=== PATIENT | female | born 1970 | race Caucasian/White ===

== ENCOUNTER 2016-10-21 10:53 | Emergency (ER) | payer MEDICAID ==
[~2016-10-21] VITALS: Ht 170.2 cm; Wt 55.0 kg
[~2016-10-21 10:53] MED LIST: ALBU6.7H INH; BECL8.7A5 INH; CYCL-259 PO; HYDR5POW; IBUP200T48 PO; SERT25TA PO; TRAM-28 PO; TRAM150C25; TRAZ100T15 PO
[2016-10-21 15:57] LABS: HEMOGLOBIN 12.9 g/dL (11.7-16.4)
[2016-10-21 16:07] VITALS: BP 114/76
[2016-10-21 16:11] LABS: BLOOD UREA NITROGEN 9 mg/dL (7-18)
[2016-10-21 16:14] LABS: ASPARTATE AMINO TRANSFERASE 17 U/L (15-37)
[2016-10-21 16:17] LABS: ACETAMINOPHEN < 2 mcg/mL (10-30)
== END 2016-10-21 17:37 | disposition home or self-care (01) ==
LOC: ED 14:03
DX: F19.94 Other psychoactive substance use, unspecified with psychoactive substance-induced mood disorder (principal); F17.200 Nicotine dependence, unspecified, uncomplicated; F10.229 Alcohol dependence with intoxication, unspecified; F15.129 Other stimulant abuse with intoxication, unspecified; J45.909 Unspecified asthma, uncomplicated; L01.01 Non-bullous impetigo
CPT/HCPCS: 36415; 80053; 80307; 80329; 82140; 85025; 99284; G0480

== ENCOUNTER 2016-11-21 02:25 | Emergency (ER) | payer MEDICAID ==
[~2016-11-21] VITALS: Ht 167.6 cm; Wt 48.0 kg
[2016-11-21] MEDS ORDERED: ZIPRASIDONE 20 MG INJ IM ONE ×2 (02:53→03:00)
[2016-11-21 08:06] VITALS: BP 128/91
== END 2016-11-21 08:08 | disposition home or self-care (01) ==
LOC: ED 03:57
DX: F41.8 Other specified anxiety disorders (principal); F23 Brief psychotic disorder
CPT/HCPCS: 96372; 99284; J3486

== ENCOUNTER 2016-11-23 10:51 | Emergency (ER) | payer MEDICAID ==
[~2016-11-23] VITALS: Ht 170.2 cm; Wt 55.7 kg
[2016-11-23 10:52] VITALS: BP 125/77
== END 2016-11-23 13:27 | disposition home or self-care (01) ==
LOC: ED 11:39
DX: R20.2 Paresthesia of skin (principal); M54.12 Radiculopathy, cervical region; R20.9 Unspecified disturbances of skin sensation; J45.909 Unspecified asthma, uncomplicated
CPT/HCPCS: 70450; 71020; 72125; 93005; 99284

== ENCOUNTER 2017-02-05 19:35 | Emergency (ER) | payer MEDICAID ==
[~2017-02-05] VITALS: Ht 172.7 cm; Wt 50.0 kg
[2017-02-05] MEDS ORDERED: ONDANSETRON 2MG/ML, 2ML ONE (19:59)
[2017-02-05] MEDS ORDERED: MORPHINE SULFATE 4 MG/ML, 1ML ONE ×2 (19:59→21:23)
[2017-02-05] MEDS ORDERED: SODIUM CHLORIDE 0.9% 1,000ML IVBOLUS ONE ×2 (20:00→21:30)
[2017-02-05] MEDS ORDERED: ONDANSETRON 2MG/ML, 2ML IVPush ONE (20:00)
[2017-02-05] MEDS: MORPHINE SULFATE 4 MG/ML, 1ML IVPush PRN ×2 (20:06→21:25)
[2017-02-05 20:23] LABS: BLOOD UREA NITROGEN 20 mg/dL (7-18)
[2017-02-05 20:32] LABS: ASPARTATE AMINO TRANSFERASE 20 U/L (15-37)
[2017-02-05 22:11] VITALS: BP 104/62
[2017-02-05 22:12] LABS: DAU SCREEN DISCLAIMER
[2017-02-05 22:23] LABS: HCG UR OBC PASS
[2017-02-05] MEDS ORDERED: OMNIPAQUE 350 MG/ML, 100ML BOTTLE ONE (22:33)
== END 2017-02-05 23:04 ==
LOC: ED 21:55
DX: R10.32 Left lower quadrant pain (principal); J45.909 Unspecified asthma, uncomplicated
CPT/HCPCS: 36415; 74177; 76830; 80053; 80307; 81003; 81025; 85025; 87210; 87491; 87591; 87808; 96361; 96374; 96375; 96376; 99285; J2405; J7030; Q9967

== ENCOUNTER 2017-03-14 16:09 | Emergency (ER) | payer MEDICAID ==
[~2017-03-14] VITALS: Ht 172.7 cm; Wt 60.0 kg
[~2017-03-14 16:09] MED LIST changes: -BECL8.7A5 INH; +BECL8.7A7 INH; -TRAM-28 PO; +TRAM-47 PO
[2017-03-14] MEDS ORDERED: PHENAZOPYRIDINE 200 MG TABLET PO ONE (16:30)
[2017-03-14] MEDS ORDERED: PHENAZOPYRIDINE 200 MG TABLET ONE (16:41)
[2017-03-14] MEDS ORDERED: PARO10TA56 PO (16:55)
[2017-03-14] MEDS ORDERED: TRAZ100T15 PO (16:55)
[2017-03-14 17:55] VITALS: BP 95/50
== END 2017-03-14 17:53 | disposition home or self-care (01) ==
LOC: ED 17:47
DX: N30.00 Acute cystitis without hematuria (principal); F15.10 Other stimulant abuse, uncomplicated; F19.94 Other psychoactive substance use, unspecified with psychoactive substance-induced mood disorder; F41.9 Anxiety disorder, unspecified; M54.12 Radiculopathy, cervical region
CPT/HCPCS: 81003; 99283

== ENCOUNTER 2017-06-26 15:33 | Emergency (ER) | payer MEDICAID ==
[~2017-06-26] VITALS: Ht 172.7 cm; Wt 54.7 kg
[~2017-06-26 15:33] MED LIST changes: +PARO10TA56 PO
[2017-06-26 15:42] VITALS: BP 142/92
[2017-06-26] MEDS ORDERED: HYDROcodone/APAP 5/325 TABLET ONE (16:26)
[2017-06-26] MEDS ORDERED: HYDROcodone/APAP 5/325 TABLET PO ONE (16:30)
== END 2017-06-26 16:58 | disposition home or self-care (01) ==
LOC: ED 16:52
DX: K08.89 Other specified disorders of teeth and supporting structures (principal); F10.20 Alcohol dependence, uncomplicated; F17.210 Nicotine dependence, cigarettes, uncomplicated; F32.9 Major depressive disorder, single episode, unspecified; F41.9 Anxiety disorder, unspecified; I10 Essential (primary) hypertension; J45.909 Unspecified asthma, uncomplicated; Z88.0 Allergy status to penicillin
CPT/HCPCS: 99283

== ENCOUNTER 2017-07-02 17:59 | Emergency (ER) | payer MEDICAID ==
[~2017-07-02] VITALS: Ht 170.2 cm; Wt 58.3 kg
[2017-07-02 18:54] VITALS: BP 100/67
== END 2017-07-02 19:48 | disposition home or self-care (01) ==
LOC: ED 19:16
DX: K02.9 Dental caries, unspecified (principal); H92.01 Otalgia, right ear; I10 Essential (primary) hypertension; J45.909 Unspecified asthma, uncomplicated
CPT/HCPCS: 99283

== ENCOUNTER 2017-08-12 06:51 | Emergency (ER) | payer MEDICAID ==
[~2017-08-12] VITALS: Ht 170.2 cm; Wt 55.5 kg
[~2017-08-12 06:51] MED LIST changes: -IBUP200T48 PO; +IBUP200T49 PO
[2017-08-12 06:53] VITALS: BP 117/68
[2017-08-12] MEDS ORDERED: KETOROLAC 30 MG/1 ML ONE (07:28)
[2017-08-12] MEDS ORDERED: KETOROLAC 30 MG/1 ML IM ONE (07:30)
[2017-08-12 07:49] LABS: BASOPHILS % (AUTO) 1 % (0-1); EOSINOPHILS # (AUTO) 0.31 x10^3/uL (0-0.4); EOSINOPHILS % (AUTO) 3 % (1-7); LYMPHOCYTES # (AUTO) 2.48 x10^3/uL (1-3.4); LYMPHOCYTES % (AUTO) 21 % (22-44); MD NO; MEAN CORPUSCULAR HEMOGLOBIN 31.3 pg (27.0-34.8); MEAN CORPUSCULAR HGB CONC 33.7 g/dL (32.4-35.8); MEAN CORPUSCULAR VOLUME 92.7 fL (80-100); MEAN PLATELET VOLUME 7.2 fL (7.4-10.4); MONOCYTES # (AUTO) 0.92 x10^3/uL (0.2-0.8); MONOCYTES % (AUTO) 8 % (2-9); NEUTROPHILS # (AUTO) 8.31 x10^3/uL (1.8-6.8); NEUTROPHILS % (AUTO) 69 % (42-75); PLATELET COUNT 384 x10^3/uL (130-400); RED CELL DISTRIBUTION WIDTH 14.5 % (9.6-15.2)
[2017-08-12 08:00] LABS: ANION GAP 8 mmol/L (5-15); CALCIUM 8.1 mg/dL (8.5-10.1); CHLORIDE 109 mmol/L (98-107); CREATININE 0.49 mg/dL (0.55-1.02)
== END 2017-08-12 09:18 | disposition home or self-care (01) ==
LOC: ED 09:00
DX: M79.642 Pain in left hand (principal); M79.641 Pain in right hand; M77.42 Metatarsalgia, left foot; M77.41 Metatarsalgia, right foot; F32.9 Major depressive disorder, single episode, unspecified; F41.9 Anxiety disorder, unspecified; I10 Essential (primary) hypertension; J45.909 Unspecified asthma, uncomplicated
CPT/HCPCS: 36415; 73130; 80048; 85025; 96372; 99285; J1885

== ENCOUNTER 2017-09-14 16:11 | Inpatient (IN) | payer MEDICAID ==
[~2017-09-14] VITALS: Ht 172.7 cm; Wt 58.7 kg
[2017-09-14] MEDS ORDERED: LORazepam 1MG TABLET PO ONE (17:00)
[2017-09-14] MEDS ORDERED: LORazepam 1MG TABLET ONE (17:20)
[2017-09-14 17:37] LABS: MEAN CORPUSCULAR HEMOGLOBIN 32.1 pg (27.0-34.8); MEAN CORPUSCULAR HGB CONC 33.9 g/dL (32.4-35.8); MEAN CORPUSCULAR VOLUME 94.6 fL (80-100); MEAN PLATELET VOLUME 7.4 fL (7.4-10.4); PLATELET COUNT 438 x10^3/uL (130-400); RED BLOOD COUNT 4.36 x10^6/uL (3.82-5.3); RED CELL DISTRIBUTION WIDTH 14.3 % (9.6-15.2)
[2017-09-14 17:37] LABS: RAPID INFLUENZA A Negative (Negative); RAPID INFLUENZA B Negative (Negative)
[2017-09-14 17:46] LABS: ALBUMIN 3.3 g/dL (3.4-5.0); ANION GAP 11 mmol/L (5-15); CALCIUM 8.7 mg/dL (8.5-10.1); CHLORIDE 106 mmol/L (98-107)
[2017-09-14 17:47] LABS: CREATININE 0.72 mg/dL (0.55-1.02)
[2017-09-14] MEDS ORDERED: SODIUM CHLORIDE FLUSH 10ML SYR IVF ONE (18:00)
[2017-09-14] MEDS ORDERED: SODIUM CHLORIDE 0.9% 1,000ML IVBOLUS ONE ×2 (18:00→18:30)
[2017-09-14] MEDS ORDERED: CEFTRIAXONE PMX 1GM/50ML 50 ML IVPB ONE (18:00)
[2017-09-14] MEDS ORDERED: AZITHROMYCIN 500 MG in SODIUM CHLORIDE 0.9% 250 ML IVPB ONE (18:00)
[2017-09-14 18:19] LABS: MD YES
[2017-09-14] MEDS ORDERED: CEFTRIAXONE PMX 1GM/50ML 50 ML ONE (18:19)
[2017-09-14 18:22] LABS: <PLATELET ESTIMATE> ADEQUATE; <RBC MORPHOLOGY> NORMAL; BAND#(MANUAL) 0.19 x10^3/uL; BANDS%(MANUAL) 1 % (0-7); BASOS#(MANUAL) 0.19 x10^3/uL (0-0.1); BASOS% (MANUAL) 1 % (0-1); EOS#(MANUAL) 0.57 x10^3/uL (0.0-0.4); EOS% (MANUAL) 3 % (1-7); LYMPH#(MANUAL) 1.71 x10^3/uL (1-3.4); LYMPHS% (MANUAL) 9 % (22-44); MONOS#(MANUAL) 0.38 x10^3/uL (0.3-2.7); MONOS% (MANUAL) 2 % (2-9); REACTIVE LYMPHS # (MANUAL) 0.38 x10^3/uL (0-0); REACTIVE LYMPHS % (MANUAL) 2 % (0-0); SEG#(MANUAL) 15.58 x10^3/uL (1.8-6.8); SEGS% (MANUAL) 82 % (42-75)
[2017-09-14 18:23] LABS: LARGE PLATELETS 1+
[2017-09-14] MEDS: SODIUM CHLORIDE 0.9% 1,000 ML IV SCH (18:58)
[2017-09-14] MEDS ORDERED: ONDANSETRON 2MG/ML, 2ML IVPush PRN (19:00)
[2017-09-14] MEDS ORDERED: BISACODYL 10 MG SUPP PR PRN (19:00)
[2017-09-14] MEDS ORDERED: CEFTRIAXONE PMX 1GM/50ML 50 ML IV SCH (19:00)
[2017-09-14] MEDS ORDERED: LORazepam 2 MG/ML, 1ML IVPush PRN (19:00)
[2017-09-14] MEDS: AZITHROMYCIN 500 MG in SODIUM CHLORIDE 0.9% 250 ML IV SCH (19:00)
[2017-09-14] MEDS ORDERED: POLYETHYLENE GLYCOL 17 GM PACKET PO PRN (19:00)
[2017-09-14] MEDS: ALBUTEROL/IPRATROPIUM 2.5MG/0.5MG, 3 ML NPPB SCH (19:55)
[2017-09-14] MEDS ORDERED: ALBUTEROL/IPRATROPIUM 2.5MG/0.5MG, 3 ML ONE (19:56)
[2017-09-14] MEDS ORDERED: NICOTINE 14MG/24 HR PATCH.TD24 ONE (20:04)
[2017-09-14] MEDS ORDERED: ONDANSETRON 2MG/ML, 2ML ONE (20:04)
[2017-09-14] MEDS ORDERED: HEPARIN 5,000 UNITS/ML, 1ML ONE (20:04)
[2017-09-14] MEDS: HEPARIN 5,000 UNITS/ML, 1ML SQ SCH (20:09)
[2017-09-14] MEDS: NICOTINE 14MG/24 HR PATCH.TD24 TD SCH (20:10)
[2017-09-14 21:34] VITALS: BP 115/69
[2017-09-14] MEDS: GUAIFENESIN/DM 200-20MG, 10ML UDC PO PRN (21:50)
[2017-09-14] MEDS: ACETAMINOPHEN 325 MG TABLET PO PRN (21:50)
[2017-09-15 01:13] VITALS: BP 112/69
[2017-09-15] MEDS: HEPARIN 5,000 UNITS/ML, 1ML SQ SCH ×3 (03:11→18:28)
[2017-09-15] MEDS: ACETAMINOPHEN 325 MG TABLET PO PRN ×2 (03:17→15:07)
[2017-09-15] MEDS: SODIUM CHLORIDE 0.9% 1,000 ML IV SCH ×2 (04:47→14:58)
[2017-09-15 06:08] LABS: BASOPHILS # (AUTO) 0.04 x10^3/uL (0-0.1); BASOPHILS % (AUTO) 0 % (0-1); EOSINOPHILS # (AUTO) 0.45 x10^3/uL (0-0.4); EOSINOPHILS % (AUTO) 4 % (1-7); LYMPHOCYTES # (AUTO) 2.03 x10^3/uL (1-3.4); LYMPHOCYTES % (AUTO) 16 % (22-44); MD NO; MEAN CORPUSCULAR HEMOGLOBIN 31.5 pg (27.0-34.8); MEAN CORPUSCULAR HGB CONC 33.2 g/dL (32.4-35.8); MEAN PLATELET VOLUME 7.7 fL (7.4-10.4); MONOCYTES # (AUTO) 0.87 x10^3/uL (0.2-0.8); MONOCYTES % (AUTO) 7 % (2-9); NEUTROPHILS # (AUTO) 9.31 x10^3/uL (1.8-6.8); NEUTROPHILS % (AUTO) 73 % (42-75); PLATELET COUNT 336 x10^3/uL (130-400); RED BLOOD COUNT 4.01 x10^6/uL (3.82-5.3); RED CELL DISTRIBUTION WIDTH 14.2 % (9.6-15.2)
[2017-09-15 06:15] LABS: CHLORIDE 112 mmol/L (98-107)
[2017-09-15 06:43] LABS: ALANINE AMINOTRANSFERASE 23 U/L (12-78); ALBUMIN 2.7 g/dL (3.4-5.0); ALKALINE PHOSPHATASE 62 U/L (45-117); ANION GAP 7 mmol/L (5-15); BILIRUBIN,TOTAL 0.5 mg/dL (0.2-1.0); CALCIUM 8.1 mg/dL (8.5-10.1); CREATININE 0.57 mg/dL (0.55-1.02); TOTAL PROTEIN 5.5 g/dL (6.4-8.2)
[2017-09-15] MEDS: ALBUTEROL/IPRATROPIUM 2.5MG/0.5MG, 3 ML NPPB SCH ×4 (07:00→20:40)
[2017-09-15 07:45] VITALS: BP 119/73
[2017-09-15] MEDS: SENNA/DOCUSATE TABLET PO SCH (09:00)
[2017-09-15 14:24] VITALS: BP 107/67
[2017-09-15] MEDS: GUAIFENESIN/DM 200-20MG, 10ML UDC PO PRN (15:07)
[2017-09-15 18:35] VITALS: BP 122/82
[2017-09-15] MEDS: CEFTRIAXONE PMX 1GM/50ML 50 ML IV SCH (20:32)
[2017-09-15] MEDS: NICOTINE 14MG/24 HR PATCH.TD24 TD SCH (21:12)
[2017-09-15] MEDS: AZITHROMYCIN 500 MG in SODIUM CHLORIDE 0.9% 250 ML IV SCH (21:12)
[2017-09-16 00:22] VITALS: BP 131/81
[2017-09-16] MEDS: SODIUM CHLORIDE 0.9% 1,000 ML IV SCH ×3 (01:20→21:01)
[2017-09-16] MEDS: GUAIFENESIN/DM 200-20MG, 10ML UDC PO PRN (03:15)
[2017-09-16] MEDS: HEPARIN 5,000 UNITS/ML, 1ML SQ SCH ×3 (03:16→21:02)
[2017-09-16] MEDS: ALBUTEROL/IPRATROPIUM 2.5MG/0.5MG, 3 ML NPPB SCH ×4 (06:58→19:00)
[2017-09-16 07:11] VITALS: BP 124/81
[2017-09-16] MEDS: SENNA/DOCUSATE TABLET PO SCH (10:08)
[2017-09-16] MEDS: CEFTRIAXONE PMX 1GM/50ML 50 ML IV SCH ×2 (10:08→20:06)
[2017-09-16] MEDS: FLUTICASONE/VILANTEROL 200-25MCG/INH INH SCH (10:31)
[2017-09-16] MEDS ORDERED: OMNIPAQUE 350 MG/ML, 75ML BOTTLE ONE (12:38)
[2017-09-16 14:41] VITALS: BP 124/75
[2017-09-16 19:10] VITALS: BP_SYST 111; BP_SYST 136; BP_DIAS 73; BP_DIAS 84
[2017-09-16] MEDS: AZITHROMYCIN 500 MG in SODIUM CHLORIDE 0.9% 250 ML IV SCH (21:01)
[2017-09-16] MEDS: NICOTINE 14MG/24 HR PATCH.TD24 TD SCH (23:05)
[2017-09-17 01:15] VITALS: BP 128/69
[2017-09-17] MEDS: HEPARIN 5,000 UNITS/ML, 1ML SQ SCH ×2 (04:52→13:30)
[2017-09-17 07:07] VITALS: BP 134/88
[2017-09-17] MEDS: ALBUTEROL/IPRATROPIUM 2.5MG/0.5MG, 3 ML NPPB SCH ×3 (07:38→14:55)
[2017-09-17] MEDS: FLUTICASONE/VILANTEROL 200-25MCG/INH INH SCH (09:37)
[2017-09-17] MEDS: SENNA/DOCUSATE TABLET PO SCH (09:37)
[2017-09-17] MEDS: CEFTRIAXONE PMX 1GM/50ML 50 ML IV SCH (09:38)
[2017-09-17] MEDS: SODIUM CHLORIDE 0.9% 1,000 ML IV SCH (09:41)
[2017-09-17 13:28] VITALS: BP 130/78
[2017-09-17] MEDS ORDERED: CEFD300C37 PO (14:35)
[2017-09-17] MEDS ORDERED: ACET325T14 PO (14:35)
[2017-09-17] MEDS ORDERED: IPRA3AMP NPPB (14:35)
[2017-09-17] MEDS ORDERED: AZIT500T5 PO (14:35)
[2017-09-17] MEDS ORDERED: FLUT1BLS INH (14:35)
[2017-09-17] MEDS ORDERED: FLU VACC QS2017-18 (36MOS+) UP/PF 0.5 ML IM-VACC ONE (16:00)
[2017-09-17] MEDS ORDERED: CEFTRIAXONE 1,000 MG in SODIUM CHLORIDE 0.9% 50 ML IV SCH (20:00)
== END 2017-09-17 16:25 | disposition home or self-care (01) | DRG 871 ==
LOC: ED 18:10 → EDIP 18:16 → 4EST 21:32 → 4WST 09-15 00:23
PROVIDERS: ADMIT Internal Medicine; ATTEND Internal Medicine
DX: A41.9 Sepsis, unspecified organism (principal); J15.9 Unspecified bacterial pneumonia; E44.1 Mild protein-calorie malnutrition; Z68.1 Body mass index [BMI] 19.9 or less, adult; J44.0 Chronic obstructive pulmonary disease with (acute) lower respiratory infection; J44.1 Chronic obstructive pulmonary disease with (acute) exacerbation; F17.210 Nicotine dependence, cigarettes, uncomplicated; F41.1 Generalized anxiety disorder; G89.29 Other chronic pain; I10 Essential (primary) hypertension; Z80.1 Family history of malignant neoplasm of trachea, bronchus and lung; Z82.49 Family history of ischemic heart disease and other diseases of the circulatory system; Z85.828 Personal history of other malignant neoplasm of skin; Z88.0 Allergy status to penicillin; Z88.5 Allergy status to narcotic agent; Z88.8 Allergy status to other drugs, medicaments and biological substances; Z23 Encounter for immunization
CPT/HCPCS: 36415; 71046; 71260; 80048; 80053; 82040; 83605; 85025; 85379; 87040; 87400; 93005; 94640; 96361; 96365; 96375; J0456; J0696; J1644; J2405; J7620; Q9967; J7030; J7050

== ENCOUNTER 2017-09-21 11:06 | Emergency (ER) | payer MEDICAID ==
[~2017-09-21] VITALS: Ht 172.7 cm; Wt 57.6 kg
[~2017-09-21 11:06] MED LIST changes: +ACET325T14 PO; +AZIT500T5 PO; +CEFD300C37 PO; +FLUT1BLS INH; +IPRA3AMP NPPB
[2017-09-21 11:19] VITALS: BP 111/70
== END 2017-09-21 11:46 | disposition left against medical advice (07) ==
LOC: ED 11:15
DX: Z53.21 Procedure and treatment not carried out due to patient leaving prior to being seen by health care provider (principal)

== ENCOUNTER 2017-10-07 05:55 | Emergency (ER) | payer MEDICAID ==
[~2017-10-07] VITALS: Ht 165.1 cm; Wt 75.0 kg
[2017-10-07 06:00] VITALS: BP 119/71
[2017-10-07] MEDS ORDERED: ALBUTEROL/IPRATROPIUM 2.5MG/0.5MG, 3 ML NPPB ONE (06:30)
[2017-10-07] MEDS ORDERED: ALBUTEROL/IPRATROPIUM 2.5MG/0.5MG, 3 ML ONE (06:32)
== END 2017-10-07 08:45 | disposition home or self-care (01) ==
LOC: ED 08:11
DX: J20.8 Acute bronchitis due to other specified organisms (principal); B97.89 Other viral agents as the cause of diseases classified elsewhere
CPT/HCPCS: 71046; 87081; 87880; 94640; 99285; J7620

== ENCOUNTER 2018-02-27 18:02 | Emergency (ER) | payer MEDICAID ==
[~2018-02-27] VITALS: Ht 172.7 cm; Wt 75.0 kg
[~2018-02-27 18:02] MED LIST changes: -IPRA3AMP NPPB; +IPRA3AMP30 NPPB; +TRAZ-137 PO; -TRAZ100T15 PO
[2018-02-27 18:05] VITALS: BP 90/57
[2018-02-27] MEDS ORDERED: HYDROcodone/APAP 5/325 TABLET PO STA (18:36)
[2018-02-27] MEDS ORDERED: HYDROcodone/APAP 5/325 TABLET ONE (18:56)
[2018-02-27] MEDS ORDERED: CLINDAMYCIN 300 MG CAPSULE ONE (18:58)
[2018-02-27] MEDS ORDERED: CLINDAMYCIN 300 MG CAPSULE PO ONE (19:00)
== END 2018-02-27 19:07 ==
LOC: ED 19:04
DX: K08.89 Other specified disorders of teeth and supporting structures (principal); F15.10 Other stimulant abuse, uncomplicated; I10 Essential (primary) hypertension; F17.200 Nicotine dependence, unspecified, uncomplicated; F10.20 Alcohol dependence, uncomplicated; Z88.0 Allergy status to penicillin; Z98.51 Tubal ligation status
CPT/HCPCS: 99283

== ENCOUNTER 2019-01-01 08:11 | Emergency (ER) | payer MEDICAID ==
[~2019-01-01] VITALS: Ht 175.3 cm; Wt 54.0 kg
[2019-01-01 08:23] VITALS: BP 117/67
--- NOTE | 2019-01-01 09:56 | NUR ---
Patient/Caregiver given discharge instructions and they have confirmed that they understand the instructions. Patient ambulatory with steady gait.
== END 2019-01-01 09:57 | disposition home or self-care (01) ==
LOC: ED 09:48
DX: K08.89 Other specified disorders of teeth and supporting structures (principal); I10 Essential (primary) hypertension; F41.1 Generalized anxiety disorder; J45.909 Unspecified asthma, uncomplicated
CPT/HCPCS: 99283

== ENCOUNTER 2019-01-03 07:26 | Emergency (ER) | payer MEDICAID ==
[~2019-01-03] VITALS: Ht 175.3 cm; Wt 55.2 kg
[2019-01-03 07:30] VITALS: BP 108/63
--- NOTE | 2019-01-03 08:37 | NUR ---
PT TO ROOM AT THIS TIME
--- NOTE | 2019-01-03 09:02 | NUR ---
PT WITH C/O TOOTH PAIN, STATES IT HAS BEEN HURTING FOR 5 DAYS. "I HAVE A BAD TOOTH" PT DENIES CP, SOB, N/V, TRAUMA. ER PROVIDER IN TO EVAL PT. PLAN FOR ABX AND THEN DC
[2019-01-03] MEDS ORDERED: KETOROLAC 30 MG/1 ML IM ONE (09:30)
[2019-01-03] MEDS ORDERED: CEFTRIAXONE 1,000 MG IM ONE (09:30)
[2019-01-03] MEDS ORDERED: KETOROLAC 30 MG/1 ML ONE (09:40)
--- NOTE | 2019-01-03 09:54 | NUR ---
PT GIVEN DISCHARGE INSTRUCTIONS, PT REFUSED TO SIGN D/C FORM. PT PROVIDED WITH TAXI VOUCHER. PT ESCORTED TO CHECK OUT
== END 2019-01-03 10:05 | disposition home or self-care (01) ==
LOC: ED 09:24
DX: K02.9 Dental caries, unspecified (principal); F15.10 Other stimulant abuse, uncomplicated; Z59.0 Homelessness; F41.1 Generalized anxiety disorder; F17.210 Nicotine dependence, cigarettes, uncomplicated
CPT/HCPCS: 96372; 99283; J0696; J1885

== ENCOUNTER 2019-07-28 08:07 | Emergency (ER) | payer MEDICAID ==
[~2019-07-28] VITALS: Ht 172.7 cm; Wt 57.2 kg
[~2019-07-28 08:07] MED LIST changes: +ACET325T26 PO; -ALBU6.7H INH; +ALBU6.7H8 INH; +AZIT500T10 PO; -AZIT500T5 PO; +FLEXERIL; +LIDO700A20 TD; +MAGN400T26 PO; +NICO-486 TD; +OMEP-110 PO; +ONDA4TAB13 SL; -TRAZ-137 PO; +TRAZ-175 PO; +VANC1VIA3 PO
[2019-07-28 08:10] VITALS: BP 102/64
[2019-07-28] MEDS ORDERED: IBUPROFEN 600 MG TABLET PO ONE (08:30)
[2019-07-28] MEDS ORDERED: IBUPROFEN 200 MG TABLET ONE (08:32)
[2019-07-28] MEDS ORDERED: DOCUSATE 50 MG/5 ML, 10ML UDC ONE (08:32)
[2019-07-28] MEDS ORDERED: DOCUSATE 50 MG/5 ML ORAL SOL OTIC ONE (09:00)
--- NOTE | 2019-07-28 09:26 | NUR ---
IRRIGATED R EAR LARGE CHUNKS FELLOUT
== END 2019-07-28 10:12 | disposition home or self-care (01) ==
LOC: ED 09:06
DX: H61.23 Impacted cerumen, bilateral (principal); H92.01 Otalgia, right ear; H60.91 Unspecified otitis externa, right ear; I10 Essential (primary) hypertension; J45.909 Unspecified asthma, uncomplicated
CPT/HCPCS: 69209; 99283

== ENCOUNTER 2019-08-17 22:30 | Emergency (ER) | payer MEDICAID ==
[~2019-08-17] VITALS: Ht 160 cm; Wt 45.5 kg
[~2019-08-17 22:30] MED LIST changes: +TRAZ-137 PO; -TRAZ-175 PO
[2019-08-17] MEDS ORDERED: DIPH,PERTUSS(ACELL),TET VAC/PF 0.5 ML IM-VACC ONE ×2 (23:00→23:17)
--- NOTE | 2019-08-18 00:40 | NUR ---
PT RESTING WITHEYES CLOSED. MONITOR IN PLACE.
--- NOTE | 2019-08-18 01:58 | NUR ---
BREAK RN: PT. RESTING ON GURNEY WITH EYES CLOSED. RESPIRATIONS VISIBLE AND NON-LABORED. SPO2 AND B/P MONITORS IN PLACE. ALL SAFETY MEASURES OBSERVED.
--- NOTE | 2019-08-18 03:00 | NUR ---
PT RESTING WITH EYES CLOSED. MONITOR IN PLACE.
[2019-08-18 03:47] VITALS: BP 131/76
--- NOTE | 2019-08-18 03:49 | NUR ---
PT RESTING WITH EYES CLOSED. MONITOR IN PLACE.
== END 2019-08-18 04:43 | disposition home or self-care (01) ==
LOC: ED 23:52
DX: S09.90XA Unspecified injury of head, initial encounter (principal); M54.2 Cervicalgia; I10 Essential (primary) hypertension; J44.9 Chronic obstructive pulmonary disease, unspecified; F17.200 Nicotine dependence, unspecified, uncomplicated; W01.198A Fall on same level from slipping, tripping and stumbling with subsequent striking against other object, initial encounter; Y93.89 Activity, other specified; Y92.410 Unspecified street and highway as the place of occurrence of the external cause; Y99.8 Other external cause status
CPT/HCPCS: 70450; 72125; 90471; 90715; 99284

== ENCOUNTER 2019-12-05 22:31 | Emergency (ER) | payer MEDICAID ==
[~2019-12-05] VITALS: Ht 172.7 cm; Wt 55.2 kg
[~2019-12-05 22:31] MED LIST changes: -TRAZ-137 PO; +TRAZ-175 PO
[2019-12-05 22:34] VITALS: BP 113/53
[2019-12-05] MEDS ORDERED: KETOROLAC 30 MG/1 ML IM ONE (23:00)
[2019-12-05] MEDS ORDERED: LIDOCAINE-MPF 1%, 5ML INFIL ONE (23:00)
[2019-12-05] MEDS ORDERED: KETOROLAC 30 MG/1 ML ONE (23:06)
[2019-12-05] MEDS ORDERED: LIDOCAINE-MPF 1%, 5ML ONE (23:06)
--- NOTE | 2019-12-06 00:13 | NUR ---
PT WOUND DRESSED WITH NONSTICK GAUZE AND KERLIX. PT TOLERATED WELL. AWAITING DISCHARGE AT THIS TIME.
== END 2019-12-06 00:26 | disposition home or self-care (01) ==
LOC: ED 23:56
DX: L02.512 Cutaneous abscess of left hand (principal); L03.114 Cellulitis of left upper limb; R00.0 Tachycardia, unspecified; G43.909 Migraine, unspecified, not intractable, without status migrainosus; Z72.9 Problem related to lifestyle, unspecified; G89.29 Other chronic pain; F17.210 Nicotine dependence, cigarettes, uncomplicated
CPT/HCPCS: 10060; 96372; 99283; J1885

== ENCOUNTER 2019-12-18 20:39 | Emergency (ER) | payer MEDICAID ==
[~2019-12-18] VITALS: Ht 172.7 cm; Wt 53.8 kg
--- NOTE | 2019-12-18 20:44 | NUR ---
NOT IN LOBBY AT CALL
[2019-12-18 20:51] VITALS: BP 124/88
--- NOTE | 2019-12-18 22:04 | NUR ---
Patient/Caregiver given discharge instructions and they have confirmed that they understand the instructions. Patient ambulatory with steady gait.
== END 2019-12-18 22:06 | disposition home or self-care (01) ==
LOC: ED 21:51
DX: L73.9 Follicular disorder, unspecified (principal); R00.0 Tachycardia, unspecified; J44.9 Chronic obstructive pulmonary disease, unspecified; F17.200 Nicotine dependence, unspecified, uncomplicated
CPT/HCPCS: 99283

== ENCOUNTER 2019-12-25 18:38 | Emergency (ER) | payer MEDICAID ==
[~2019-12-25] VITALS: Ht 172.7 cm; Wt 60.0 kg
--- NOTE | 2019-12-25 19:00 | NUR ---
RECEIVED REPORT FROM HUGO FRANK.
--- NOTE | 2019-12-25 19:02 | NUR ---
CXR TO BEDSIDE.
--- NOTE | 2019-12-25 19:10 | NUR ---
THIS PT WALKED TO THE ER, PT STATES SHE IS HAVING PAIN AT HER 2 SCAB SIGHTS, FOR WHICH SHE WAS SEEN HERE RECENTLY. PT STATES SHE WAS GIVEN AND ABX AND IS CURRENTLY TAKING THEM. PT ALSO COMPLAINING OF SOB, TALKING IN FULL SENTENCES, SATING AT 97% ON ROOM AIR. PT STATES SHE USED METH 2 DAYS AGO. PT TALKING WITH RN, ANSWERING QUESTIONS APPROPRIATELY AND THEN FELL ASLEEP BEFORE RN LEFT THE ROOM, EYES CLOSED, RESPIRATIONS EVEN AND UNLABORED.
[2019-12-25 19:42] VITALS: BP 109/67
--- NOTE | 2019-12-25 20:18 | NUR ---
PT GIVEN EXTENSIVE D/C INSTRUCTIONS, INCLUDING MEDICATION INFROMATION, RESOURCES AND EDUCATION ABOUT DRUG CESATION. PT STATING "NO ONE CAME TO LOOK AT ME, THERE WERE NO TESTS THAT WERE RUN." ERP HAD PREVIOUSLY BEEN TO BEDSIDE AND COMPLETED A PHYSICAL ASSESSMENT AND ORDERED A CXR. PT GIVEN RESOURCES UPON DISCHARGE WHICH SHE THREW ACROSS THE ROOM AND LEFT WITHOUT. 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
--- NOTE | 2019-12-25 20:21 | NUR ---
PT STATED "I CAN'T SWOLLOW" PT ABLE TO DRINK WATER WITHOUT ANY SIGNS OF DISTRESS.
--- NOTE | 2019-12-25 20:40 | NUR ---
UPON CLEANING THE ROOM, IT WAS NOTED THAT THE PT THREW HER D/C INSTRUCTIONS IN THE TRASH INCLUDING HER PERSCRIPTIONS AND LIST OF RESOURCES.
== END 2019-12-25 20:24 | disposition home or self-care (01) ==
LOC: ED 19:14
DX: L03.311 Cellulitis of abdominal wall (principal); F15.129 Other stimulant abuse with intoxication, unspecified; Z72.9 Problem related to lifestyle, unspecified
CPT/HCPCS: 71045; 99283

== ENCOUNTER 2020-03-03 18:12 | Emergency (ER) | payer MEDICAID ==
[~2020-03-03] VITALS: Ht 172.7 cm; Wt 65.0 kg
[2020-03-03] MEDS ORDERED: SODIUM CHLORIDE FLUSH 10ML SYR IVF ONE (18:30)
[2020-03-03] MEDS ORDERED: SODIUM CHLORIDE 0.9% 1,000ML IVBOLUS ONE (18:30)
[2020-03-03 18:33] VITALS: BP 123/70
[2020-03-03 18:47] LABS: BASOPHILS # (AUTO) 0.07 x10^3/uL (0-0.1); BASOPHILS % (AUTO) 1 % (0-1); EOSINOPHILS # (AUTO) 0.41 x10^3/uL (0-0.4); EOSINOPHILS % (AUTO) 3 % (1-7); LYMPHOCYTES % (AUTO) 27 % (22-44); MD NO; MEAN CORPUSCULAR HEMOGLOBIN 31.9 pg (27.0-34.8); MEAN CORPUSCULAR HGB CONC 33.4 g/dL (32.4-35.8); MEAN CORPUSCULAR VOLUME 95.7 fL (80-100); MEAN PLATELET VOLUME 7.3 fL (7.4-10.4); MONOCYTES # (AUTO) 1.04 x10^3/uL (0.2-0.8); MONOCYTES % (AUTO) 9 % (2-9); NEUTROPHILS # (AUTO) 7.36 x10^3/uL (1.8-6.8); NEUTROPHILS % (AUTO) 61 % (42-75); PLATELET COUNT 385 x10^3/uL (130-400); RED BLOOD COUNT 4.08 x10^6/uL (3.82-5.3); RED CELL DISTRIBUTION WIDTH 14.3 % (9.6-15.2)
--- NOTE | 2020-03-03 18:50 | NUR ---
REPORT FROM MARY ARIAS ASSUMING CARE OF PT
[2020-03-03 18:54] LABS: ALANINE AMINOTRANSFERASE 21 U/L (12-78); ALBUMIN 3.2 g/dL (3.4-5.0); ANION GAP 6 mmol/L (5-15); CALCIUM 8.7 mg/dL (8.5-10.1); CHLORIDE 110 mmol/L (98-107); CREATININE 0.58 mg/dL (0.55-1.02)
[2020-03-03 18:56] LABS: ALKALINE PHOSPHATASE 73 U/L (45-117); BILIRUBIN,TOTAL 0.3 mg/dL (0.2-1.0); TOTAL PROTEIN 6.9 g/dL (6.4-8.2)
--- NOTE | 2020-03-03 19:24 | NUR ---
PT RESTING ON MINERVA CHAVEZ. FLUIDS INFUSING W/OUT DIFFICULTY
== END 2020-03-03 20:23 | disposition home or self-care (01) ==
LOC: ED 20:19
DX: R19.7 Diarrhea, unspecified (principal); R10.84 Generalized abdominal pain; I10 Essential (primary) hypertension; J44.9 Chronic obstructive pulmonary disease, unspecified; F17.210 Nicotine dependence, cigarettes, uncomplicated; G43.909 Migraine, unspecified, not intractable, without status migrainosus; Z98.51 Tubal ligation status
CPT/HCPCS: 36415; 74021; 80053; 83690; 85025; 96360; 96361; 99284; 99406; J7030

== ENCOUNTER 2020-05-17 17:13 | Emergency (ER) | payer MEDICAID ==
--- NOTE | 2020-05-17 18:10 | NUR ---
JENELLEX1
--- NOTE | 2020-05-17 20:25 | NUR ---
patient no in the lobby. called multiple times no answer.
== END 2020-05-17 20:26 | disposition left against medical advice (07) ==
LOC: ED 17:33
DX: R06.02 Shortness of breath (principal); Z53.21 Procedure and treatment not carried out due to patient leaving prior to being seen by health care provider